=== PATIENT | female | born 1955 | race Caucasian/White ===

== ENCOUNTER 2016-09-21 22:59 | Observation (INO) ==
[2016-09-21] MEDS ORDERED: Ondansetron 4 MG/2 ML VIAL IV STA (23:11)
[2016-09-21] MEDS ORDERED: 0.9 % Sodium Chloride 1,000 ML IVC ONE (23:11)
[2016-09-21] MEDS ORDERED: 0.9 % Sodium Chloride 3,000 ML ONE (23:13)
--- NOTE | 2016-09-21 23:29 | Emergency Department Note ---
Disposition Clinical Impression: Vertigo, Weakness, Colitis, Dehydration, Dehydration, Hypokalemia, Abdominal pain, Syncope Disposition: Admitted As Inpatient Condition: Fair Referrals: Rowan Welsh CNP [Primary Care Provider] - Forms: ED Satisfaction Letter Time of Disposition: 02:40 ([facility]) Fall HPI - General Chief Complaint: ED Fall Stated Complaint: Vomiting Time Seen by Provider: 09/21/16 23:00 Source: patient, family Mode of arrival: ambulatory Limitations: altered mental status, physical limitation Nursing Notes Reviewed: Yes Vital Signs Reviewed: Yes - History of Present Illness HPI Narrative: Hospital this week patient had symptoms of where she had some weakness and ataxia was not able to hold a phone up to her head was globally both upper and lower extremities symmetrically weak this is now progressed to the point where she has had nausea vomiting and diarrhea having syncopal also she passed out struck and hit her head in the shower yesterday then today started having repeated episodes of vomiting and is unable to stand up and get about as result family brought her here to the emergency room for further hydration they deny that she has had a black tarry or melanotic stools he denies she has had any trauma other than hitting her head they state that she has not complained of any outward complaints of the digit other than the dizziness which was going on this week as numbness tingling weakness rash or lesions at this time she is only complaining of abdominal pain crampy in etiology Pt Subjective Complaint: fall Onset (ago): day(s) Fall From: standing (in he shower) Fall Witnessed: yes Place Fall Occurred: home Loss of Consciousness: none Prolonged Down Time?: no Symptoms Prior to Fall: lightheadedness Context: tripped/slipped, recent illness Location of injury: head Associated symptoms (after fall): Reports: abdominal pain, vertigo, confusion. Denies: headache, neck pain, numbness, weakness, chest pain, shortness of breath , hematuria, unable to walk, lightheaded - Related Data Home Medications Medication Instructions Recorded Confirmed Albuterol Sulfate [Albuterol 2 puff IH Q4HR PRN 01/28/16 09/21/16 Inhaler] Aspirin Enteric Coated [Aspirin EC] 81 mg PO DAILY 01/28/16 09/21/16 Atorvastatin [Lipitor] 40 mg PO HS 01/28/16 09/21/16 Cetirizine HCl/Pseudoephedrine 1 tab PO BID 01/28/16 09/21/16 [Cetirizine-Pse ER 5-120 mg Tab] Cholecalciferol (D-3) [Vitamin D] 1,000 unit PO DAILY 01/28/16 09/21/16 Furosemide [Lasix] 40 mg PO DAILY 01/28/16 09/21/16 Gabapentin [Neurontin] 300 mg PO TID 01/28/16 09/21/16 HYDROcodone/Acet 5/325 mg [[place] 1 tab PO Q6H PRN 01/28/16 09/21/16 5-325 mg] Hydrochlorothiazide 25 mg PO DAILY 01/28/16 09/21/16 Levothyroxine [Synthroid] 112 mcg PO DAILY 01/28/16 09/21/16 Lisinopril [Zestril] 20 mg PO DAILY 01/28/16 09/21/16 Omeprazole [PriLOSEC] 20 mg PO DAILY 01/28/16 09/21/16 Paroxetine [Paxil] 40 mg PO DAILY 01/28/16 09/21/16 Linaclotide [Linzess] 145 mcg PO DAILY 03/18/16 09/21/16 Promethazine [Phenergan] 25 mg PO Q12H PRN 03/18/16 09/21/16 Previous Rx's Medication Instructions Recorded Docusate [Colace] 100 mg PO BID #30 capsule 01/28/16 Allergies Allergy/AdvReac Type Severity Reaction Status Date / Time No Known Allergies Allergy Unverified 03/20/15 13:52 All systems ED: reviewed and negative except as stated. Constitutional: Reports: weakness. Denies: fever, chills Eyes: Denies: vision change ENT ED: Denies: ear pain, throat pain Cardiovascular: Denies: chest pain, palpitations Respiratory: Denies: cough, dyspnea, wheezes Gastrointestinal: Reports: abdominal pain, nausea, vomiting, diarrhea Genitourinary: Denies: urgency, dysuria, frequency Musculoskeletal: Denies: back pain, neck pain Integumentary: Denies: rash Neurological: Reports: abnormal gait, vertigo, other (fall head injury) Psychiatric: Denies: anxiety Endocrine: Reports: fatigue Hematological/Lymphatic: Denies: easy bleeding Allergic/Immunologic: Denies: facial swelling Fall PMH - Past Medical History Medical history: Reports: arthritis, CHF, GERD, hypertension, thyroid disease, other Surgical history: Reports: cholecystectomy, hysterectomy, sinus surgery, thyroidectomy, other Psychiatric history: Reports: anxiety, depression 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 - Social History Smoking Status: Current every day smoker Alcohol use: Reports: none Drug use: Reports: none Physical Exam - General Limitations: altered mental status, physical limitation General appearance: alert, lethargic, in distress - Head Head exam: atraumatic, normocephalic, normal inspection - Eye Eye exam: Present: normal appearance, PERRL, EOMI - ENT ENT exam: normal exam, normal oropharynx, mucous membranes moist, TM's normal bilaterally, normal external ear exam - Neck Neck exam: Present: normal inspection, full ROM, trachea midline - Chest Chest inspection: Present: normal inspection, symmetric chest wall rise - Respiratory Respiratory exam: Present: normal lung sounds bilaterally - Cardiovascular Cardiovascular exam: Present: regular rate, normal rhythm, normal heart sounds - Abdominal Exam Abdominal exam: Present: soft, Non-Tender, normal bowel sounds Abdominal tenderness: Present: diffuse, moderate - Extremities Exam Extremities exam: Present: normal inspection, full ROM, normal capillary refill - Expanded Upper Extremity Exam Shoulder exam: Present: normal inspection, full ROM Arm exam: Present: normal inspection, full ROM Elbow exam: Present: normal inspection, full ROM Forearm/Wrist exam: Present: normal inspection, full ROM Hand exam: Present: normal inspection, full ROM Neurosensory exam: Normal: radial nerve, ulnar nerve, median nerve Vascular exam: Normal: capillary refill, radial pulse, ulnar pulse - Expanded Lower Extremity Exam Hip/Pelvis exam: Present: normal inspection, full ROM Upper leg exam: Present: normal inspection, full ROM Knee exam: Present: normal inspection, full ROM Lower leg exam: Present: normal inspection, full ROM Ankle exam: Present: normal inspection, full ROM Foot/toe exam: Present: normal inspection, full ROM Neurovascular/Tendon exam: Present: normal capillary refill, normal 2-point discrimination, normal fine/light touch. Absent: motor deficit, sensory deficit , tendon deficit Gait: observed and normal - Back Exam Back exam: Present: normal inspection, full ROM. Absent: muscle spasm - Neurological Exam Neurological exam: Present: alert, oriented X3, CN II-XII intact - Psychiatric Psychiatric exam: Present: normal affect, normal mood - Skin Skin exam: Present: intact, diaphoresis, pallor Course Course Narrative: Patient was seen and examined immediately with the patient at bedside being diaphoretic pale and ashen IVs were ordered to she was taken to CAT scan based on the initial history that she had the dizziness struck and hit her head and has had the profound vomiting with further discussion with family while this was occurring as the patient had had vertiginous symptoms and then had the vomiting and diarrhea she has had intermittent episodes of colitis type presentation and this could also be a precipitating factor patient then had a large defecation here within the emergency room and patient then went to sleep and rest comfortably patient received 2 L of fluid patient's had improvement of her hypotension that was present patient is now starting to feel better sitting up talking carrying on conversation with myself and staff states she does not have any complaints other than some abdominal cramping at this time with patient. Patient will be IV hydrated and maintained here in the emergency room admitted to [facility] because of the hypokalemia in addition stable at time of transfer markedly improved Vital Signs O2 Sat by Pulse Oximetry 93 L 09/21/16 23:00 Temperature 97.6 F 09/22/16 02:00 Pulse Rate 70 09/22/16 02:00 Respiratory Rate 25 09/22/16 02:00 Blood Pressure 88/45 09/22/16 02:00 O2 Sat by Pulse Oximetry 95 09/22/16 02:00 Oxygen Delivery Oxygen Delivery Nasal Cannula Fall - MDM Narrative Medical decision making narrative: Considerations are as the patient is dehydrated with hypokalemia secondary to this I did consider the possibilities of GI bleed gastrointestinal I did consider possible myocardial with her having a history of some weakness and lightheaded dizziness earlier and then having a near-syncopal episode in the shower than having vomiting afterwards I even contacted the potentials to include the pulse was intracranial bleed tumor mass or lesions radiology has read the film as negative for any tumors or lesions but the patient may still want an MRI if continues to have vertiginous symptoms after hydration but patient is stating she feels significantly better at this time after almost 3 L of normal - Differential Diagnosis Likely: syncope - Medical Records Medical records reviewed: Yes I reviewed the patient's medical records. - Lab Data Lab results reviewed: Yes I reviewed the patient's lab results. Result diagrams: 09/21/16 23:40 09/21/16 23:40 Lab Results 09/21/16 09/21/16 09/21/16 Range/Units 23:40 23:40 23:40 WBC 19.4 H (4.3-11.1) K/mcL RBC 5.95 H (3.82-4.97) M/mcL Hgb 16.9 H (11.5-15.4) g/dL Hct 49.0 H (35.3-44.9) % MCV 82.4 L (83.0-100.0) fL MCH 28.4 (28.0-33.3) pg MCHC 34.5 (31.6-35.5) g/dL RDW 15.0 H (11.5-14.5) % Plt Count 281 (140-400) K/mcL MPV 11.6 (9.4-12.4) fL Immature Gran % 0.8 (0-4) % Seg Neutrophils % 77.2 % Lymphocytes % 16.0 % Monocytes % 5.1 % Eosinophils % 0.5 % Basophils % 0.4 % Neutrophils # 15.0 H (1.6-8.9) K/mcL Lymphocytes # 3.1 (0.6-4.6) K/mcL Monocytes # 1.0 (0.0-1.3) K/mcL Eosinophils # 0.1 (0.0-0.6) K/mcL Basophils # 0.1 (0.0-0.2) K/mcL PT 13.1 H (9.4-12.1) Seconds INR 1.2 APTT 31.6 (26.0-36.0) Seconds Sodium 133 L (136-145) mEq/L Potassium 2.8 L (3.5-4.5) mEq/L Chloride 88 L (98-109) mEq/L Carbon Dioxide 26 (19-29) mEq/L BUN 24 H (7-20) mg/dL Creatinine 1.52 H (0.57-1.11) mg/dL Est GFR ( Amer) 42 L (> 60) Est GFR (Non-Af Amer) 35 L (> 60) BUN/Creatinine Ratio 16 (6-26) Glucose 188 H (70-99) mg/dL Calculated Osmolality 285 (280-300) Calcium 8.8 (8.6-10.8) mg/dL Total Bilirubin (0.2-1.2) mg/dL Direct Bilirubin (0.0-0.5) mg/dL Indirect Bilirubin (0.0-1.2) mg/dL AST (5-34) Units/L ALT (0-55) Units/L Alkaline Phosphatase (38-126) Units/L Troponin I (0-0.03) ng/mL Serum Total Protein (6.0-8.3) g/dL Albumin (3.5-5.0) g/dL Globulin (2.4-3.5) g/dL Albumin/Globulin Ratio (1.1-2.2) Lipase (8-78) Units/L 09/21/16 09/22/16 Range/Units 23:40 01:15 WBC (4.3-11.1) K/mcL RBC (3.82-4.97) M/mcL Hgb (11.5-15.4) g/dL Hct (35.3-44.9) % MCV (83.0-100.0) fL MCH (28.0-33.3) pg MCHC (31.6-35.5) g/dL RDW (11.5-14.5) % Plt Count (140-400) K/mcL MPV (9.4-12.4) fL Immature Gran % (0-4) % Seg Neutrophils % % Lymphocytes % % Monocytes % % Eosinophils % % Basophils % % Neutrophils # (1.6-8.9) K/mcL Lymphocytes # (0.6-4.6) K/mcL Monocytes # (0.0-1.3) K/mcL Eosinophils # (0.0-0.6) K/mcL Basophils # (0.0-0.2) K/mcL PT (9.4-12.1) Seconds INR APTT (26.0-36.0) Seconds Sodium (136-145) mEq/L Potassium (3.5-4.5) mEq/L Chloride (98-109) mEq/L Carbon Dioxide (19-29) mEq/L BUN (7-20) mg/dL Creatinine (0.57-1.11) mg/dL Est GFR ( Amer) (> 60) Est GFR (Non-Af Amer) (> 60) BUN/Creatinine Ratio (6-26) Glucose (70-99) mg/dL Calculated Osmolality (280-300) Calcium (8.6-10.8) mg/dL Total Bilirubin 0.7 (0.2-1.2) mg/dL Direct Bilirubin 0.3 (0.0-0.5) mg/dL Indirect Bilirubin 0.4 (0.0-1.2) mg/dL AST 17 (5-34) Units/L ALT 9 (0-55) Units/L Alkaline Phosphatase 103 (38-126) Units/L Troponin I 0.01 (0-0.03) ng/mL Serum Total Protein 6.9 (6.0-8.3) g/dL Albumin 3.2 L (3.5-5.0) g/dL Globulin 3.7 H (2.4-3.5) g/dL Albumin/Globulin Ratio 0.9 L (1.1-2.2) Lipase 61 (8-78) Units/L - Radiology Data Radiology results reviewed: Yes I reviewed the patient's radiology results. ITS Impressions Head CT 09/21/16 23:12 IMPRESSION: No acute intracranial abnormality. Examination is limited by beam hardening artifact from earrings. D/ / Arleen Martino MD / Arleen Martino MD Interpreting Provider: Arleen Martino MD Abdomen/Pelvis CT 09/22/16 00:45 IMPRESSION: Abrupt caliber change of the distal duodenum, of uncertain etiology, possibly due to an adhesion or internal hernia. Consider upper GI series with small bowel follow-through for further evaluation. Mildly thickened appearance to the colon which could reflect a mild colitis. Right lower lobe pulmonary micronodule. Nonspecific thickening of the ventral wall of the urinary bladder. RECOMMENDATIONS: Fleischner Society guidelines for follow-up and management of pulmonary nodules: Nodule size equals 6-8 mm In a low-risk patient, initial follow-up CT at 6-12 months then at 18-24 months if no change. In a high-risk patient, initial follow-up CT at 3-6 months then at 9-12 months and 24 months if no change. . Low risk patients include individuals with minimal or absent history of smoking and other known risk factors. High risk patients include individuals with a history of smoking or other known risk factors. Radiology 2005; 237:395-400 D/ / Geovani Cole MD / Geovani Cole MD Interpreting Provider: Geovani Cole MD - EKG Data EKG attestation: Yes I reviewed and interpreted this EKG. EKG results narrative: Sinus rhythm nonspecific T-wave rate 71 IA 171 QRS 94 QT 440 excess 34 Critical Care Time Critical Care Time: Yes Total Critical Care Time: 35 Attestation: Critical care performed: 35 minutes as result of her recurrent hypotension which did require 3 L of fluid to bring her blood pressure back to the point of stabilization to get her back to baseline of 100 she was started on Vernell Irasema as result of colitis with the following history the patient is admitted for observation service of Dr. Villalobos and patient's family at this time agree Time is exclusive of separately billable procedures. Time includes: direct patient care, patient reassessment, coordination of patient care, interpretation of data (laboratory data, radiology data, and respiratory data), review of patient's medical records, medical consultation and documentation of patient care. Procedures included in critical care time: Procedures excluded from critical care time:
[2016-09-21 23:48] LABS: Basophils # 0.1 K/mcL (0.0-0.2); Basophils % 0.4 %; Eosinophils # 0.1 K/mcL (0.0-0.6); Eosinophils % 0.5 %; Hemoglobin 16.9 g/dL (11.5-15.4); Immature Granulocytes % 0.8 % (0-4); Lymphocytes # 3.1 K/mcL (0.6-4.6); Mean Corpuscular HGB Conc 34.5 g/dL (31.6-35.5); Mean Corpuscular Hemoglobin 28.4 pg (28.0-33.3); Mean Corpuscular Volume 82.4 fL (83.0-100.0); Mean Platelet Volume 11.6 fL (9.4-12.4); Monocytes % 5.1 %; Platelet Count 281 K/mcL (140-400); Red Blood Count 5.95 M/mcL (3.82-4.97); Segmented Neutrophils % 77.2 %
[2016-09-21 23:56] LABS: INR 1.2; Prothrombin Time 13.1 Seconds (9.4-12.1)
[2016-09-21 23:58] LABS: Activated Partial Thrombo Time 31.6 Seconds (26.0-36.0)
[2016-09-22 00:06] LABS: Calcium 8.8 mg/dL (8.6-10.8); Potassium 2.8 mEq/L (3.5-4.5)
[2016-09-22] MEDS ORDERED: Potassium Chloride 20 MEQ, Lidocaine 1% 2 ML in D5% in Water 250 ML IVPB ONE ×2 (00:33→03:05)
[2016-09-22] MEDS ORDERED: 0.9 % Sodium Chloride 1,000 ML IVC ONE (01:57)
[2016-09-22 02:12] LABS: Albumin 3.2 g/dL (3.5-5.0); Albumin/Globulin Ratio 0.9 (1.1-2.2); Bilirubin,Direct 0.3 mg/dL (0.0-0.5); Bilirubin,Indirect 0.4 mg/dL (0.0-1.2); Bilirubin,Total 0.7 mg/dL (0.2-1.2); Globulin 3.7 g/dL (2.4-3.5); Total Protein 6.9 g/dL (6.0-8.3)
[2016-09-22] MEDS ORDERED: MetroNIDAZOLE 500 MG/100 ML 500 MG/100 ML BAG IVPB SCH (02:30)
[2016-09-22] MEDS ORDERED: *HR* Morphine 2 MG/ML SYRINGE IVP ONE (02:44)
[2016-09-22] MEDS ORDERED: Ondansetron 4 MG/2 ML VIAL IVP PRN (03:05)
[2016-09-22] MEDS ORDERED: Naloxone 0.4 MG/ML INJ IVP PRN (03:05)
[2016-09-22] MEDS ORDERED: 0.9 % Sodium Chloride 1,000 ML IVC SCH (03:05)
[2016-09-22] MEDS ORDERED: 0.9 % Sodium Chloride 3,000 ML ONE (03:05)
[2016-09-22] MEDS: MetroNIDAZOLE 500 MG/100 ML 500 MG/100 ML BAG IVPB SCH ×2 (08:35→15:35)
[2016-09-22] MEDS: Gabapentin 300 MG CAPSULE PO SCH ×2 (08:38→15:36)
[2016-09-22] MEDS ORDERED: (Linaclotide [Linzess] 145 MCG) PO SCH (09:00)
[2016-09-22] MEDS ORDERED: Lisinopril 20 MG TABLET PO SCH (09:00)
[2016-09-22] MEDS ORDERED: Aspirin Enteric Coated 81 MG Tablet PO SCH (09:00)
[2016-09-22] MEDS ORDERED: Cholecalciferol (D-3) 1,000 UNIT TABLET PO SCH (09:00)
[2016-09-22] MEDS ORDERED: Loratadine/Pseudophed (12 HR) 1 EACH TABLET PO SCH (09:00)
--- NOTE | 2016-09-22 12:24 | Internal Med History&Physical ---
Date of Encounter: 09/22/16 Time of Encounter: 11:45 Assessment and Plan (1) Colitis Current visit: Yes Status: Acute She has past blood clots per rectum this morning per nursing staff report. She requests to be transferred to [facility] for possible surgical evaluation. (2) Hypokalemia Current visit: Yes Status: Acute She was given 40 mEq KCl by K riders through emergency room orders. (3) Azotemia Current visit: Yes Status: Acute Suspect due to dehydration from vomiting with use of hydrochlorothiazide. IV fluids have been ordered. Internal Medicine - H&P: HPI Chief complaint: Fall, vomiting, confusion, hypokalemia Admitted From: Home Plans for Post Hospital Care: Home History of present illness: Ms. Diaz is a 61 year old female who came to the emergency room stating she had onset of vomiting earlier in the day. She states she vomited at least 10 times but there was no hematemesis visualized. She had bilateral lower quadrant abdominal pain present for 4 days. Denies melena, hematochezia, or diarrhea. Her daughter found her confused and brought her to emergency room. CT the abdomen and pelvis showed mildly thickened appearance to the colon possibly representing colitis. There was nonspecific thickening of the ventral wall of the urinary bladder. There was right lower lobe pulmonary nodule measuring 6.6 mm diameter. There was abrupt caliber change of the distal duodenum of uncertain etiology. A CT of the head was unremarkable. She was admitted to [facility] for ongoing care needs. She denies previous episodes of melena or hematochezia. She had colonoscopy most recently 03/18/2016 with multiple noncancerous polyps removed. She had cholecystectomy January 2016 but states that the gallbladder was not diseased. She reports she has had nausea daily for at least 2 years and has a diagnosis of gastroparesis. She denies disorders of her liver or exocrine pancreas. Past Med Surg Social Fam HX - Past Medical History Medical history: arthritis, CHF, GERD, hypertension, thyroid disease, other Psychiatric history: anxiety, depression - Past Surgical History Surgical History: cholecystectomy, hysterectomy, sinus surgery, thyroidectomy, other - Social History Smoking Status: Current every day smoker Packs per day: 1 Smokeless Tobacco Status: No Alcohol use: none Drug use: none - Family History Mother Living Status: Age at : 77 Cause of : ovarian cancer Internal Medicine - H&P: Meds Albuterol Sulfate [Albuterol Inhaler] 2 puff IH Q4HR PRN 01/28/16 [History] Aspirin Enteric Coated [Aspirin EC] 81 mg PO DAILY 01/28/16 [History] Atorvastatin [Lipitor] 40 mg PO HS 01/28/16 [History] Cetirizine HCl/Pseudoephedrine [Cetirizine-Pse ER 5-120 mg Tab] 1 tab PO BID [History] Cholecalciferol (D-3) [Vitamin D] 1,000 unit PO DAILY 01/28/16 [History] Docusate [Colace] 100 mg PO BID #30 capsule 01/28/16 [Rx] Furosemide [Lasix] 40 mg PO DAILY 01/28/16 [History] Gabapentin [Neurontin] 300 mg PO TID 01/28/16 [History] HYDROcodone/Acet 5/325 mg [[place] 5-325 mg] 1 tab PO Q6H PRN 01/28/16 [History] Hydrochlorothiazide 25 mg PO DAILY 01/28/16 [History] Levothyroxine [Synthroid] 112 mcg PO DAILY 01/28/16 [History] Lisinopril [Zestril] 20 mg PO DAILY 01/28/16 [History] Omeprazole [PriLOSEC] 20 mg PO DAILY 01/28/16 [History] Paroxetine [Paxil] 40 mg PO DAILY 01/28/16 [History] Linaclotide [Linzess] 145 mcg PO DAILY 03/18/16 [History] Promethazine [Phenergan] 25 mg PO Q12H PRN 03/18/16 [History] Allergies No Known Allergies Allergy (Unverified 03/20/15 13:52) All Systems PM: A 10-system review of systems was performed and is negative for pertinent findings except as documented above in the HPI. Review of systems: Gen.: She states her weight has been stable the last few months Cardiovascular: She has history of hypertension but denies WI heart failure angina DVT or pulmonary embolus. She reports having a negative heart catheter in 2012 Respiratory: She smoked since age 16 up to 2 packs per day. She denies known chronic lung disease and does not use home oxygen. She denies being tested for [place] GI: As per history of present illness : She denies hematuria dysuria or kidney stones. She was found to have azotemia on emergency room blood work Neurologic: She denies large distribution strokes or seizures. Endocrine: She has hypothyroidism and hyperlipidemia. She denies diabetes Hematology/oncology: She denies blood disorders cancers or anemia Psychiatric: She has anxiety and depression but denies other mental health issues [place] skeletal: She has pain in her left shoulder and states she has rheumatoid arthritis. - Constitutional Vitals: Temp Pulse Resp BP Pulse Ox 97.6 F 66 16 118/73 97 09/22/16 10:31 09/22/16 10:31 09/22/16 10:31 09/22/16 10:31 09/22/16 10:31 Exam: Gen.: She is a well-developed overweight female who appears in minimal distress at present time HEENT: Head is atraumatic and normocephalic. Eyes: EOMI. There is no scleral icterus. Mouth: Mucosa is moist. Neck: Supple and nontender. There is no thyromegaly or adenopathy noted. Heart: Regular without murmurs gallops or ectopics. Lungs: No wheezes or crackles are heard. Lungs show diminished breath sounds diffusely. Abdomen: Bowel sounds are diminished. There is mild tenderness to palpation in the lower abdominal area bilaterally. No masses or guarding noted. Extremities: There is no cyanosis edema or clubbing noted. Dorsalis pedis and posttibial pulses are 2 over 2 bilaterally. Neurologic: Mental status: She is talkative and a good historian. Cranial nerves: Smile is symmetric. Forehead wrinkles bilaterally. Tongue protrudes midline. EOMI. Motor: There is no pronator drift. Cerebellar: Finger to nose is intact bilaterally. Skin: Warm and dry Internal Med - H&P Results - Labs CBC & Chem 7: 09/21/16 23:40 09/21/16 23:40
[2016-09-22] MEDS ORDERED: 0.9 % Sodium Chloride w KCl 20 MEQ/1,000 ML MLS IVC SCH (12:45)
[2016-09-22] MEDS: Pantoprazole 40 MG VIAL IVP SCH ×2 (12:55→19:04)
[2016-09-22] MEDS: *HR* Morphine 2 MG/ML SYRINGE IVP PRN ×3 (13:06→17:30)
--- NOTE | 2016-09-22 16:49 | Discharge Summary ---
Date of Encounter: 09/22/16 Time of Encounter: 11:45 - Discharge Diagnosis (1) Colitis Priority: Primary Status: Acute (2) Hypokalemia Priority: Secondary Status: Acute (3) Azotemia Priority: Secondary Status: Acute - Discharge Medications Home Medications: Albuterol Sulfate [Albuterol Inhaler] 2 puff IH Q4HR PRN 01/28/16 [History] Atorvastatin [Lipitor] 40 mg PO HS 01/28/16 [History] Cholecalciferol (D-3) [Vitamin D] 1,000 unit PO DAILY 01/28/16 [History] Docusate [Colace] 100 mg PO BID #30 capsule 01/28/16 [Rx] Gabapentin [Neurontin] 300 mg PO TID 01/28/16 [History] HYDROcodone/Acet 5/325 mg [[place] 5-325 mg] 1 tab PO Q6H PRN 01/28/16 [History] Levothyroxine [Synthroid] 112 mcg PO DAILY 01/28/16 [History] Omeprazole [PriLOSEC] 20 mg PO DAILY 01/28/16 [History] Paroxetine [Paxil] 40 mg PO DAILY 01/28/16 [History] Linaclotide [Linzess] 145 mcg PO DAILY 03/18/16 [History] Promethazine [Phenergan] 25 mg PO Q12H PRN 03/18/16 [History] Allergies/Adverse Reactions: Allergies No Known Allergies Allergy (Unverified 03/20/15 13:52) Date of admission: 09/22/16 02:48 Primary care physician: Rowan Welsh CNP - Patient Status Disposition: Transfer Short-Term Hosp Condition: Fair - Discharge Instructions Hospital course: Ms. Diaz is a 61 year old female who came to the emergency room stating she had onset of vomiting earlier in the day. She states she vomited at least 10 times but there was no hematemesis visualized. She had bilateral lower quadrant abdominal pain present for 4 days. Denies melena, hematochezia, or diarrhea. Her daughter found her confused and brought her to emergency room. CT the abdomen and pelvis showed mildly thickened appearance to the colon possibly representing colitis. There was nonspecific thickening of the ventral wall of the urinary bladder. There was right lower lobe pulmonary nodule measuring 6.6 mm diameter. There was abrupt caliber change of the distal duodenum of uncertain etiology. A CT of the head was unremarkable. She was admitted to [facility] for ongoing care needs. Initial orders were written by the emergency room physician. I saw her the morning of September 22 and performed the history and physical. After examining the patient, the patient and family stated they wished her to be transferred to [facility] for ongoing medical care and possible surgical evaluation. Contact was made with the accepting hospitalist at [facility] and she was accepted in transfer. - Time Spent with Patient Total time spent providing and/or coordinating discharge services: - Constitutional Vitals: Temp Pulse Resp BP Pulse Ox 98.4 F 71 16 105/68 100 09/22/16 14:59 09/22/16 14:59 09/22/16 14:59 09/22/16 14:59 09/22/16 14:59
[2016-09-22 19:35] VITALS: BP 93/55
--- NOTE | 2016-09-23 15:28 | Electrocardiograph Report ---
[address] [place], [place] [address] Test Date: 2016-09-21 Pat Name: Carline Diaz Department: [id number] Room: [facility] Gender: F [employer]: : 1955 Requested By: Natasha Castro Order Number: [id number] Reading MD: Martha Magallanes Measurements Intervals [place] Rate: 71 P: 79 [place]: 171 QRS: 34 QRSD: 94 T: 64 QT: 440 QTc: 463 Interpretive Statements SINUS RHYTHM MINIMAL ST DEPRESSION Electronically Signed On 09-23-2016 15:27:01 EST by Martha Magallanes
== END 2016-09-22 20:28 | disposition short-term general hospital (02) ==
LOC: EMEROOPIK 22:59 → INPPIK 22:59
PROVIDERS: ADMIT Internal Medicine; ATTEND Internal Medicine

== ENCOUNTER 2020-11-28 17:48 | Observation (INO) ==
[2020-11-28] MEDS ORDERED: 0.9 % Sodium Chloride 1,000 ML IVC ONE (18:16)
[2020-11-28 18:34] LABS: Basophils % 0.4 %; Eosinophils # 0.1 K/mcL (0.0-0.6); Eosinophils % 0.7 %; Hemoglobin 14.6 g/dL (11.5-15.4); Immature Granulocytes % 0.7 % (0-4); Lymphocytes # 1.2 K/mcL (0.6-4.6); Lymphocytes % 11.9 %; Mean Corpuscular HGB Conc 33.2 g/dL (31.6-35.5); Mean Corpuscular Volume 87.5 fL (83.0-100.0); Mean Platelet Volume 12.1 fL (9.4-12.4); Monocytes # 0.6 K/mcL (0.0-1.3); Monocytes % 5.5 %; Neutrophils # 8.4 K/mcL (1.6-8.9); Platelet Count 205 K/mcL (140-400); Red Blood Count 5.03 M/mcL (3.82-4.97); Red Cell Distribution Width 16.5 % (11.5-14.5); Segmented Neutrophils % 80.8 %; White Blood Count 10.4 K/mcL (4.3-11.1)
[2020-11-28 18:46] LABS: Bilirubin,Urine Negative (Negative); Blood,Urine Trace-intact (Negative); Clarity,Urine Cloudy (Clear); Color,Urine Yellow (Yellow); Glucose,Urine (UA) Normal (Normal); Ketones,Urine Negative (Negative); Leukocyte Esterase,Urine Trace (Negative); Nitrite,Urine Positive (Negative); PH,Urine 5.5 pH Units (5.0-8.0); Protein,Urine Negative (Neg-Trace); Urobilinogen,Urine Normal (Normal)
[2020-11-28 18:50] LABS: Alanine Aminotransferase 11 Units/L (7-52); Albumin/Globulin Ratio 1.2 (1.1-2.2); Alkaline Phosphatase 77 Units/L (34-104); Aspartate Amino Transferase 16 Units/L (13-39); BUN/Creatinine Ratio 7 (6-26); Bilirubin,Direct 0.1 mg/dL (0.0-0.2); Bilirubin,Indirect 0.4 mg/dL (0.0-1.0); Bilirubin,Total 0.5 mg/dL (0.3-1.0); Blood Urea Nitrogen 7 mg/dL (8-23); Calcium 9.1 mg/dL (8.6-10.3); Carbon Dioxide 31 mEq/L (23-29); Chloride 99 mEq/L (98-107); Ethanol < 10 mg/dL (Less than 10); Globulin 3.3 g/dL (2.4-3.5); Glucose 122 mg/dL (70-105); Osmolality,Calculated 285 (280-300); Potassium 3.6 mEq/L (3.5-5.1); Sodium 138 mEq/L (136-145); Total Protein 7.3 g/dL (6.4-8.9); eGFR For African Americans > 60 (> 60); eGFR For Non-African Americans 57 (> 60)
[2020-11-28 18:54] LABS: Bacteria,Urine Many per hpf (None-Few); RBC,Urine 0-3 per hpf (0-3); Squamous Epithelial Cell,Urine Few per hpf (None-Few)
[2020-11-28 19:02] LABS: Amphetamine Screen,Urine Negative ng/mL (Cutoff=1000); Barbiturate Screen,Urine Negative ng/mL (Cutoff=200); Benzodiazepines Screen,Urine Negative ng/mL (Cutoff=200); Cannabinoid Screen,Urine Negative ng/mL (Cutoff = 50); Cocaine Screen,Urine Negative ng/mL (Cutoff= 300); Opiate Screen,Urine Negative ng/mL (Cutoff=300); Phencyclidine Screen,Urine Negative ng/mL (Cutoff=25)
[2020-11-28] MEDS ORDERED: Naloxone 0.4 MG/ML INJ IVP PRN (20:50)
[2020-11-28] MEDS ORDERED: Ondansetron 4 MG/2 ML VIAL IVP PRN (20:50)
[2020-11-29] MEDS ORDERED: Furosemide 40 MG TABLET PO SCH (09:00)
[2020-11-29] MEDS ORDERED: Aspirin 81 MG TAB.CHEW PO SCH (09:00)
[2020-11-29 11:07] VITALS: BP 127/81
== END 2020-11-29 16:15 | disposition home or self-care (01) ==
LOC: EMEROOPIK 17:48 → INPPIK 17:48
PROVIDERS: ADMIT Internal Medicine; ATTEND Family Medicine